=== PATIENT | female | born 2000 | race Caucasian/White ===

== ENCOUNTER 2018-09-12 12:32 | Emergency (ER) | payer SELFPAY ==
[2018-09-12 13:14] LABS: Bilirubin Small (Negative); Blood, Urine Negative (Negative); Clarity Clear (Clear); Glucose, Urine (Dipstick) Negative (Negative); Leukocyte Negative (Negative); Nitrite Negative (Negative); Protein, Urine (Dipstick) Trace mg/dL (Neg-Trace)
[2018-09-12 13:17] LABS: Pregnancy Test - Urine (BHCG) Negative (Negative); Pregu Control Background? CLEAR/WHITE (CLR/WHITE); Pregu Control Bar Appear? YES (CONTROL BAR)
== END 2018-09-12 13:30 | disposition home or self-care (01) ==
LOC: MADERS 12:32
DX: A08.4 Viral intestinal infection, unspecified (principal); E11.9 Type 2 diabetes mellitus without complications; Z79.84 Long term (current) use of oral hypoglycemic drugs; F41.9 Anxiety disorder, unspecified; F17.210 Nicotine dependence, cigarettes, uncomplicated; Z79.899 Other long term (current) drug therapy
CPT/HCPCS: 36416; 81003; 81025; 99284

== ENCOUNTER 2018-10-24 00:48 | Emergency (ER) | payer SELFPAY ==
[2018-10-24 01:19] LABS: Bilirubin Negative (Negative); Blood, Urine Large (Negative); Glucose, Urine (Dipstick) Negative (Negative); Leukocyte Negative (Negative); Nitrite Negative (Negative); Protein, Urine (Dipstick) Negative (Neg-Trace); Urobilinogen 0.2 mg/dL (Less than 2)
[2018-10-24] MEDS ORDERED: Ibuprofen 800 MG TAB ONE (01:21)
[2018-10-24 01:22] LABS: Clarity Hazy (Clear)
[2018-10-24 01:23] LABS: WBC/HPF 0-3 HPF (0-3)
[2018-10-24 01:24] LABS: Bacteria/HPF 1+ HPF (None Seen)
[2018-10-24 01:25] LABS: Pregnancy Test - Urine (BHCG) Negative (Negative); Pregu Control Background? CLEAR/WHITE (CLR/WHITE); Pregu Control Bar Appear? YES (CONTROL BAR); Specific Gravity 1.025 (1.002-1.036)
--- NOTE | 2018-10-24 07:39 | CT ---
PRELIMINARY REPORT/[facility]/EMERGENCY AFTER HOURS PROCEDURE EXAM: CT Abdomen and Pelvis Without Contrast EXAM DATE/TIME: 10/24/2018 1:46 AM CLINICAL HISTORY: 18 years old, female; Abdominal tenderness; Abdominal pain; Right; Patient HX: RT flank pain x3 days TECHNIQUE: Imaging protocol: Computed tomography images of the abdomen and pelvis without contrast. Radiation optimization: All CT scans at this facility use at least one of these dose optimization techniques: automated exposure control; mA and/or kV adjustment per patient size (includes targeted exams where dose is matched to clinical indication); or iterative reconstruction. COMPARISON: No relevant prior studies available. FINDINGS: Liver: No acute findings. No mass. Gallbladder and bile ducts: No calcified stones. No ductal dilation. Possible gallbladder sludge. Pancreas: No acute findings. No ductal dilation. Spleen: No acute findings. No splenomegaly. Adrenals: No acute findings. No mass. Kidneys and ureters: 3mm stone in the right ureterovesical junction with hydroureteronephrosis and perinephric stranding. Other bilateral punctate nonobstructing renal stones. No left hydronephrosis. Stomach and bowel: No obstruction. Appendix: No evidence of appendicitis. Intraperitoneal space: Trace cul-de-sac free fluid. No free air. Vasculature: No abdominal aortic aneurysm. Lymph nodes: No significant adenopathy. Bladder: See above. The bladder is decompressed. Reproductive: No acute findings. Bones/joints: No acute fracture. Soft tissues: No acute findings. IMPRESSION: Right ureterovesical junction obstructing stone. Bilateral punctate nonobstructing renal stones. Thank you for allowing us to participate in the care of your patient. Dictated and Authenticated by: Ander Fallon MD 10/24/2018 3:01 AM Central Time ([place] & [place]) FINAL REPORT EMERGENCY AFTER HOURS ABDOMEN AND PELVIC CT SCAN WITHOUT IV CONTRAST: Date: 10/24/18 Time: 0148 hours Nonobstructing bilateral renal calculi. Minimally obstructing 0.5 cm diameter distal right ureteral c alculus at the ureterovesicular junction. Trace free fluid in the pelvis. No CT evidence for acute appendicitis. This report is in agreement with the preliminary report by [facility]. Transcribed Date/Time: 10/24/2018 8:30 AM
== END 2018-10-24 03:29 | disposition home or self-care (01) ==
LOC: MADERS 00:48
DX: N13.2 Hydronephrosis with renal and ureteral calculous obstruction (principal); E11.9 Type 2 diabetes mellitus without complications; F41.9 Anxiety disorder, unspecified; F32.9 Major depressive disorder, single episode, unspecified; F17.210 Nicotine dependence, cigarettes, uncomplicated; Z79.899 Other long term (current) drug therapy; Z79.84 Long term (current) use of oral hypoglycemic drugs
CPT/HCPCS: 74176; 81003; 81015; 81025; 99406

== ENCOUNTER 2019-01-17 10:41 | Emergency (ER) | payer SELFPAY ==
[2019-01-17 12:23] LABS: #Basophils 0.1 thou/uL (0.0-0.2); #Eosinphils 0.1 thou/uL (0.0-0.7); #Lymphocytes 3.1 thou/uL (1.20-3.40); #Monocytes 0.8 thou/uL (0.11-0.59); #Neutrophils 6.3 thou/uL (1.40-6.50); %Basophils 0.9 % (0.0-1.0); %Eosinophils 1.4 % (0.0-10.0); %Lymphocytes 29.5 % (28.0-48.0); %Monocytes 7.6 % (0.0-4.0); %Neutrophils 60.6 % (31.0-61.0); Hemoglobin 14.2 g/dL (12.0-16.0); Mean Corpuscular HGB CONC 30.8 g/dL (32.0-36.0); Mean Corpuscular Hemoglobin 27.3 pg (25.0-35.0); Mean Corpuscular Volume 88.5 fL (78.0-98.0); Mean Platelet Volume 7.9 fL (7.4-10.4); Platelet Count 397 thou/uL (130-400); RBC Distribution Width 13.1 % (11.5-14.5); Red Blood Cell (RBC) Count 5.21 mill/uL (4.00-5.20); White Blood Cell (WBC) Count 10.4 thou/uL (4.8-10.8)
[2019-01-17] MEDS ORDERED: Sodium Chloride 0.9% 1,000 ML ONE ×3 (12:24→15:20)
[2019-01-17 12:38] LABS: ALT (SGPT) 54 U/L (8-55); AST (SGOT) 27 U/L (5-34); Acetaminophen Less than 6.0 mcg/mL (10.0-30.0); Albumin 4.4 g/dL (3.5-5.0); Alcohol Less than 10 mg/dL (Less than 10); Alkaline Phosphatase 80 U/L (40-100); Anion Gap 18 mmol/L (10-20); BUN (Urea Nitrogen) 8 mg/dL (7.0-18.7); Bilirubin, Total 0.6 mg/dL (0.2-1.2); Calc. Creatinine Clearance 0 mL/min (70-130); Calcium 9.7 mg/dL (7.8-10.44); Carbon Dioxide 22 mmol/L (22-29); Chloride 107 mmol/L (98-107); Estimated GFR-MDRD 83; Globulin 3.3 g/dL (2.4-3.5); Glucose 72 mg/dL (70-105); Potassium 3.3 mmol/L (3.5-5.1); Protein, Total 7.7 g/dL (6.0-8.3); Salicylate Less than 8.0 mg/dL (15.0-30.0); Sodium 144 mmol/L (136-145)
[2019-01-17 12:41] LABS: Lactic Acid 1.1 mmol/L (0.5-2.2)
[2019-01-17] MEDS ORDERED: Potassium Chloride 20 MEQ TAB ONE (14:55)
[2019-01-17 15:38] LABS: Pregnancy Test - Urine (BHCG) Negative (Negative); Pregu Control Background? CLEAR/WHITE (CLR/WHITE); Pregu Control Bar Appear? YES (CONTROL BAR); Specific Gravity 1.016 (1.002-1.036)
[2019-01-17 15:42] LABS: Bilirubin Negative (Negative); Blood, Urine Small (Negative); Clarity Slightly Cloudy (Clear); Glucose, Urine (Dipstick) Negative (Negative); Leukocyte Moderate (Negative); Nitrite Positive (Negative); Protein, Urine (Dipstick) Negative (Neg-Trace)
[2019-01-17 15:43] LABS: Amphetamine Detected (NotDetected); Barbiturates Screen Not Detected (NotDetected); Benzodiazepine Screen Not Detected (NotDetected); Cocaine Metabolite Screen Not Detected (NotDetected); Medtox Control Line Valid? VALID (VALID); Methadone Not Detected (NotDetected); Methamphetamine Detected (NotDetected); Opiate Screen Not Detected (NotDetected); Oxycodone Screen Not Detected (NotDetected); Phencyclidine (PCP) Not Detected (NotDetected); THC/Cannabinoid Screen Not Detected (NotDetected); Tricyclic Screen Not Detected (NotDetected)
[2019-01-17 15:46] LABS: Bacteria/HPF 4+ HPF (None Seen); WBC/HPF Greater Than 50 HPF (0-3)
== END 2019-01-17 18:01 | disposition short-term general hospital (02) ==
LOC: MADERS 10:41
DX: T43.212A Poisoning by selective serotonin and norepinephrine reuptake inhibitors, intentional self-harm, initial encounter (principal); T45.0X2A Poisoning by antiallergic and antiemetic drugs, intentional self-harm, initial encounter; E87.6 Hypokalemia
CPT/HCPCS: 36415; 51701; 80053; 80306; 80307; 81001; 81025; 83605; 85025; 96360; 96361; A4353; J7050

== ENCOUNTER 2022-12-21 20:32 | Emergency (ER) | payer SELFPAY ==
[2022-12-21] MEDS ORDERED: Ibuprofen 600 MG TAB ONE (21:07)
== END 2022-12-21 22:55 | disposition home or self-care (01) ==
LOC: MADERS 20:32
DX: S83.91XA Sprain of unspecified site of right knee, initial encounter (principal); X58.XXXA Exposure to other specified factors, initial encounter